=== PATIENT | male | born 1980 | race African-American/Black ===

== ENCOUNTER 2016-07-27 16:37 | Emergency (ER) | payer OTHER ==
[~2016-07-27] VITALS: Ht 177.8 cm; Wt 77.1 kg
[~2016-07-27 16:37] MED LIST: AMOXIL500 MG PO; BENTYL20 MG PO; LIORESAL 10MG T10 MG PO; MOTRIN 600 MG600 MG PO; MOTRIN800 MG PO; PENICILLIN VK500 MG PO; TRAMADOL50 MG PO; VICODIN5-300 PO
[2016-07-27 16:40] VITALS: BP 161/93
--- NOTE | 2016-07-27 16:56 | ED GI/GU/ABDOMINAL COMPLAINT ---
History of Present Illness General Chief Complaint: General Adult Stated Complaint: PT BLEEDING ALOT WHEN USING THE BATHROOM Source: patient, old records Exam Limitations: no limitations Vital Signs & Intake/Output Vital Signs & Intake/Output Vital Signs Date Time Temp Pulse Resp B/P Pulse O2 O2 Flow FiO2 Ox Delivery Rate 07/27 1728 97 Room Air 07/27 1640 97.2 98 20 161/93 99 Room Air ED Intake and Output 07/28 0000 07/27 1200 Intake Total 0 Output Total Balance 0 Intake, IV 0 Patient 170 lb Weight Allergies Coded Allergies: NO KNOWN ALLERGIES (07/27/16) Reconcile Medications Amoxicillin (Amoxil) 500 MG CAP 1 TAB PO BID DENTAL INFECTION Anusol Hc (Anusol-Hc) 25 MG SUPP.RECT 1 SUP RC BID HEMORRHOID Dicyclomine Hydrochloride (Bentyl) 20 MG TAB 1 TAB PO 4 TIMES/DAY PRN abdominal pain Triage Note: TRIAGE: PT TO ER C/C BLOOD FROM RECTUM DURING BOWEL MOVEMENT TODAY. STATES YESTERDAY HE WAS CONSTIPATED. REPORTS HX OF HEMMORHOIDS. Triage Nurses Notes Reviewed? yes Onset: Abrupt Duration: day(s): (1), better, resolved prior to arrival Timing: single episode today Quality/Severity: aching Severity Numbers: 3 Location: RECTAL Radiation: no radiation Activities at Onset: BOWEL MOVEMENT No Modifying Factors: none Associated Symptoms: DENIES HPI: 35-year-old male presents emergency room for evaluation with history of hemorrhoids after he had one episode of bright red blood per rectum while having a bowel movement today. Patient reports a history of similar episodes in the past for which she was given a cream and the symptoms resolved. He states that yesterday he was constipated as he recently quit smoking and could not go. He states that he has not had any diarrhea nausea vomiting or abdominal pain. No fever no chills. He first noticed the blood while wiping while having a bowel movement today. He denies any hematuria urgency frequency. There are no modifying factors or associated symptoms otherwise. (LAYO PALOMO) Past History Travel History Traveled to [place] past 21 day No Medical History Any Pertinent Medical History? 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 No (LAYO PALOMO) Review of Systems Review of Systems Constitutional: Reports: see HPI. All Other Systems: Reviewed and Negative Comments Review of systems: See HPI, All other systems negative. Constitutional, no chills no fever, no malaise HEENT: No visual changes no sore throat no congestion, no ear pain Cardiovascular: No chest pain , no palpitation Skin, no jaundice no rashes, no change in skin Respiratory: No dyspnea no cough no sputum GI: No nausea no vomiting, no diarrhea, no bloating/constipation : No dysuria No hematuria, Muscle skeletal: No joint pain, no joint swelling, no back pain, no neck pain, Neurologic: No numbness no headache Psych: No stress Heme/endocrine: No bruising no bleeding Immunology: No lymphadenopathy (LAYO PALOMO) Physical Exam Physical Exam General Appearance: well developed/nourished, alert, awake Gastrointestinal: normal bowel sounds, soft, non-tender Comments: Well-developed well-nourished person in no acute distress HEENT: Normal EENT exam; PERRL, EOMI, no nystagmus. HEAD is atraumatic. moist mucous membranes. Neck: Supple, normal range of motion Back: Nontender. Full range of motion Cardiovascular: Regular rate and rhythms no murmurs rubs Respiratory: No respiratory distress. Patient speaking in full complete sentences. Breath sounds clear to auscultation bilaterally: NO W/R/R Abdomen: Soft, nontender nondistended, no appreciable organomegaly. Normal bowel sounds. No rebound/guarding Rectal: Nontender. Brown stool heme positive, positive internal hemorrhoid, no fissure. Extremity: No edema, full range of motion of extremities, normal and equal pulses bilaterally, 5 out of 5 strength noted to bilateral upper and lower extremities Neuro: Alert oriented x3, motor sensory normal, There were no obvious focal neurologic abnormalities. Skin: No appreciable rash on exposed skin, skin is warm and dry. Psych: Mood and affect is normal, memory and judgment is normal. Core Measures ACS in differential dx? No Severe Sepsis Present: No Septic Shock Present: No (LAYO PALOMO) Progress Differential Diagnosis: colon cancer, gastritis, hepatitis, hernia, hemorrhoids, ischemic bowel, inflamm bowel dis, peptic ulcer, PUD/GERD, perforated viscous Plan of Care: I discussed the patient's physical exam findings given history of similar presentation and finding of internal hemorrhoids today discussed with him need for close follow-up with his primary care physician prescription for ANUSOL suppository provided I advised [id number] Dulcolax and stool softeners as needed return anytime sooner with any concerns. The patient feels comfortable plan he will return anytime sooner with any concerns cleared for discharge Initial ED EKG: none (LAYO PALOMO) Departure Departure Time of Disposition: 1720 Disposition: HOME OR SELF CARE Condition: Stable Clinical Impression Primary Impression: Internal hemorrhoid Referrals: LAINEY VAZ DO,ANA FOLEY (PCP/Family) Additional Instructions: ANUSOL SUPPOSITORY DIRECTED. USE OVER THE COUNTER STOOL SOFTENERS DISCUSSED,DRINK PLENTY OF FLUIDS. FOLLOW UP WITH WITH COLORECTAL SURGEON DR RETANA IF SYMPTOMS PERSIST.RETURN AT ANYTIME SOONER WITH ANY CONCERNS Departure Forms: Customer Survey General Discharge Information Prescriptions: Current Visit Scripts Anusol Hc (Anusol-Hc) 1 SUP RC BID #14 SUP (LAYO PALOMO) PA/ASSEMBLER TYPE BAR AND SEGMENT Co-Sign Statement Statement: ED Attending supervision documentation- [] I saw and evaluated the patient. I have also reviewed all the pertinent lab results and diagnostic results. I agree with the findings and the plan of care as documented in the PA's/ASSEMBLER TYPE BAR AND SEGMENT's documentation. [X] I have reviewed the ED Record and agree with the PA's/ASSEMBLER TYPE BAR AND SEGMENT's documentation. [] Additions or exceptions (if any) to the PAs/ASSEMBLER TYPE BAR AND SEGMENT's note and plan are summarized below: [] (ALENA HARRINGTON,KIRA)
[2016-07-27] MEDS ORDERED: ANUSOL-HC25 M1 RC (17:22)
== END 2016-07-27 17:41 ==
LOC: ERH 16:37
DX: K64.8 Other hemorrhoids (principal)

== ENCOUNTER 2018-01-05 09:26 | Emergency (ER) | payer OTHER ==
[~2018-01-05] VITALS: Ht 177.8 cm; Wt 83.0 kg
[~2018-01-05 09:26] MED LIST changes: +ANUSOL-HC25 M1 RC; +BENZONATATE200 M1 PO; +IBUPROFEN800 M1 PO; +MEDROL4 M2 PO; +PROVENTIL HFA6.7 GM INH; +ZITHROMAX250 M2 PO; +ZOFRAN ODT4 M1 SL
--- NOTE | 2018-01-05 11:44 | ED THROAT/DENTAL COMPLAINT ---
History of Present Illness General Chief Complaint: General Adult Stated Complaint: SWELLING IN MOUTH, LEFT EAR PAIN Source: patient Exam Limitations: no limitations Vital Signs & Intake/Output Vital Signs & Intake/Output Vital Signs Date Time Temp Pulse Resp B/P B/P Pulse O2 O2 Flow FiO2 Mean Ox Delivery Rate 01/05 1353 98.0 60 20 128/82 99 Room Air 01/05 1140 97.9 58 18 127/88 97 Room Air 01/05 0950 66 20 116/78 98 Room Air ED Intake and Output 01/06 0000 01/05 1200 Intake Total Output Total Balance Patient 183 lb Weight Weight Reported by Patient Measurement Method Allergies Coded Allergies: No Known Allergies (01/05/18) Reconcile Medications Amoxicillin 500 MG TABLET 1 TAB PO BID infection Triage Note: PT C/O SWELLING TO ROOF OF MOUTH AND LEFT EAR PAIN X 2 DAYS. DENIES AIRWAY INVOLVEMENT Triage Nurses Notes Reviewed? yes Onset: Abrupt Duration: changing over time, continues in ED, getting worse Timing: no prior history Severity: moderate Severity Numbers: 9 No Modifying Factors: none HPI: 37-year-old male presents emergency department reporting 2 day history of left oral pain that is now radiating to his left ear. He reports that he had looked at the area and seeing a "black dot" which have concerned him. He does report a history of having tooth infection on his lower left oral region which occurred years ago. He denies any trauma to the area. He denies taking any pain medication for this. He does state that he was supposed to work in [place] today but because of the ongoing pain he was unable to go. He reports having difficulty swallowing because of this. He does report having twitching on his right eye which he is not sure if this is related to. He denies any significant medical history. He does report smoking cigarettes which he discontinued about 3 weeks ago. (Meseret Donato) Past History Travel History Traveled to [place] past 21 day No Medical History Any Pertinent Medical History? 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 No (Meseret Donato) Review of Systems Review of Systems Constitutional: Reports: no symptoms. EENTM: Reports: see HPI. Respiratory: Reports: no symptoms. Cardiovascular: Reports: no symptoms. GI: Reports: no symptoms. Genitourinary: Reports: no symptoms. Musculoskeletal: Reports: no symptoms. Skin: Reports: no symptoms. Neurological/Psychological: Reports: no symptoms. Hematologic/Endocrine: Reports: no symptoms. Immunologic/Allergic: Reports: no symptoms. All Other Systems: Reviewed and Negative (Meseret Donato) Physical Exam Physical Exam General Appearance: well developed/nourished, no apparent distress, alert, awake , comfortable Head: atraumatic, normal appearance Eyes: Bilateral: normal appearance, EOMI. Ears: Bilateral: canal normal, Tympanic normal. Nose: normal inspection, no sinus tenderness Mouth/Throat: uvular deviation to the right, left upper soft palate with amorphous 1cm area of hyperpigmentation, tender to touch, no tonsillar exudates or swelling, no foreign body, no tenderness to palpation of entire oral mucosa other than area mentioned Neck: normal inspection, supple, full range of motion, trachea midline, no midline tenderness, no lymphadenopathy Cardiovascular/Respiratory: no respiratory distress Back: normal range of motion Neurologic/Psych: no motor/sensory deficits, awake, alert, oriented x 3, normal gait, normal mood/affect Skin: intact, normal color, warm/dry Diagram Dental: 1) Core Measures ACS in differential dx? No Sepsis Present: No Sepsis Focused Exam Completed? No (Meseret Donato) Progress Differential Diagnosis: odontogenic abscess, herminio-tonsillar abscess, stomatitis/ gingivitis Plan of Care: Orders Procedure Date/time Status CT NECK W IV CONTRAST 01/[address] MAXILLOFACIAL W CONT 01/05 1121 Active 37 year old male with 2 day history of left upper oral pain with "black dot" on the oral mucosa, with pain radiating towards his left ear. -Ordered CT scans of neck and maxillofacial - radiology called and requesting to order just the CT neck as this will show what we are looking for. -CT scans negative. Patient given abx rx to take at home for prophylactic prevention of infection. He is advised to follow-up with dentist on Sunday outpatient. He should return to the emergency department with any new or worsening symptoms. Patient was stable at time of discharge. Diagnostic Imaging: Viewed by Me: CT Scan. Discussed w/RAD: CT Scan. Radiology Impression: PATIENT: LYNDA BAILEY PRESENT AGE: 37 PATIENT ACCOUNT NO: [id number] : 82 LOCATION: [facility] ORDERING PHYSICIAN: Meseret DEL CASTILLO SERVICE DATE: 01/05/18 EXAM TYPE: CAT - CT NECK W IV CONTRAST EXAMINATION: CT NECK WITH CONTRAST CLINICAL INFORMATION: Left oral pain. Evaluate for peritonsillar abscess. COMPARISON: None TECHNIQUE: Multidetector helical imaging was performed in the axial plane following intravenous administration of 90 mL of Optiray 320. DLP: 53.9 mGy-cm FINDINGS: No contour abnormality or pathologic enhancement seen within the oral cavity or pharyngeal mucosal space. No peritonsillar fluid collection is seen. No retropharyngeal fluid collection is identified. The larynx appears normal. The airway is patent. The thyroid gland is homogeneous. The carotid sheath vasculature opacifies normally. There is elongation of the styloid processes bilaterally with ossification of the stylohyoid ligaments extending to the hyoid bone. There is mild mucosal thickening in the maxillary sinuses and mild to moderate mucosal thickening in the right sphenoid sinus. The mastoid air cells are clear. There is no cervical adenopathy. The TMJs are normal. The imaged orbits are unremarkable. There is periapical lucency and erosion of the buccal cortex overlying the tooth root of the right lateral mandibular incisor. The right first mandibular molar tooth is been previously extracted. There is a small left paracentral disc protrusion at C4-C5. Mild spondylosis visible at C5- C6. The submandibular and parotid glands appear normal. The feather edger spaces are symmetric. The retromolar trigones and not well assessed due to dental amalgam artifacts. The imaged mediastinum is normal. The lung apices are clear. The imaged portions of the brain parenchyma demonstrate no acute abnormality. IMPRESSION: No peritonsillar abscess. Mild to moderate mucosal thickening in the right sphenoid sinus. Elongation of the styloid processes bilaterally with ossification of the stylohyoid ligaments. Age indeterminate periapical lucency and erosion of the buccal cortex in the alveolar bone overlying the tooth root of the right lateral mandibular incisor. DICTATED BY: Thomas Hartman MD DATE/ TIME DICTATED:01/05/181199 RESIDENTIAL REMODELING SUBCONTRACTOR:KARY DATE/TIME TRANSCRIBED: 01/05/181199 CONFIDENTIAL, DO NOT COPY WITHOUT APPROPRIATE AUTHORIZATION. < Electronically signed in Other Vendor System> SIGNED BY: Thomas Hartman MD 01/05/18 1211 (Meseret Donato) Departure Departure Disposition: HOME OR SELF CARE Condition: Stable Clinical Impression Primary Impression: Dental abscess Referrals: Izzy Luna APRN (PCP/Family) Additional Instructions: Take amoxicillin as prescribed. Follow-up with dentist, call on Sunday for appointment. Return to the emergency department with new or worsening symptoms. Departure Forms: Customer Survey General Discharge Information Prescriptions: Current Visit Scripts Amoxicillin 1 TAB PO BID #24 TAB (Meseret Donato) PA/ENGINEERING PROJECT DESIGNER Co-Sign Statement Statement: ED Attending supervision documentation- I saw and evaluated the patient. I have also reviewed all the pertinent lab results and diagnostic results. I agree with the findings and the plan of care as documented in the PA's/ENGINEERING PROJECT DESIGNER's documentation. x I have reviewed the ED Record and agree with the PA's/ENGINEERING PROJECT DESIGNER's documentation. [] Additions or exceptions (if any) to the PAs/ENGINEERING PROJECT DESIGNER's note and plan are summarized below: [] (Rosalia HARRINGTON,Lc)
--- NOTE | 2018-01-05 12:11 | CT SCAN REPORT ---
EXAMINATION: CT NECK WITH CONTRAST CLINICAL INFORMATION: Left oral pain. Evaluate for peritonsillar abscess. COMPARISON: None TECHNIQUE: Multidetector helical imaging was performed in the axial plane following intravenous administration of 90 mL of Optiray 320. DLP: 53.9 mGy-cm FINDINGS: No contour abnormality or pathologic enhancement seen within the oral cavity or pharyngeal mucosal space. No peritonsillar fluid collection is seen. No retropharyngeal fluid collection is identified. The larynx appears normal. The airway is patent. The thyroid gland is homogeneous. The carotid sheath vasculature opacifies normally. There is elongation of the styloid processes bilaterally with ossification of the stylohyoid ligaments extending to the hyoid bone. There is mild mucosal thickening in the maxillary sinuses and mild to moderate mucosal thickening in the right sphenoid sinus. The mastoid air cells are clear. There is no cervical adenopathy. The TMJs are normal. The imaged orbits are unremarkable. There is periapical lucency and erosion of the buccal cortex overlying the tooth root of the right lateral mandibular incisor. The right first mandibular molar tooth is been previously extracted. There is a small left paracentral disc protrusion at C4-C5. Mild spondylosis visible at C5-C6. The submandibular and parotid glands appear normal. The service desk agent spaces are symmetric. The retromolar trigones and not well assessed due to dental amalgam artifacts. The imaged mediastinum is normal. The lung apices are clear. The imaged portions of the brain parenchyma demonstrate no acute abnormality. IMPRESSION: No peritonsillar abscess. Mild to moderate mucosal thickening in the right sphenoid sinus. Elongation of the styloid processes bilaterally with ossification of the stylohyoid ligaments. Age indeterminate periapical lucency and erosion of the buccal cortex in the alveolar bone overlying the tooth root of the right lateral mandibular incisor.
[2018-01-05] MEDS ORDERED: AMOXICILLIN500 M3 PO (13:50)
[2018-01-05 13:53] VITALS: BP 128/82
== END 2018-01-05 13:57 ==
LOC: ERH 09:26
DX: K04.7 Periapical abscess without sinus (principal)